=== PATIENT | female | born 1960 | race Caucasian/White ===

== ENCOUNTER 2024-01-19 16:05 | Emergency (ER) | payer MEDICARE, SELFPAY ==
[2024-01-19 16:14] VITALS: BP 146/88; PULSE 56; O2SAT 96; BMI 32.4
--- NOTE | 2024-01-19 16:22 | ED.GENADUL1 ---
HPI HPI - General Adult General Chief complaint: Abdominal Pain Stated complaint: Abdominal Pain, Diarrhea Time Seen by Provider: 01/19/24 16:07 Source: patient Mode of arrival: walk-in Limitations: no limitations History of Present Illness HPI narrative: 63-year-old female presents for nausea vomiting and diarrhea. She appears to have had this for months. She was at another hospital emergency department last month and she states she had blood tests and a CAT scan and they did not find anything. She has been to her family doctor since then but did not discuss this issue. She has had no fever or hematemesis or blood in her stools. The pain is moderate and mostly on the left side. Related Data Allergies Allergy/AdvReac Type Severity Reaction Status Date / Time No Known Drug Allergies Allergy Verified 01/19/24 16:13 Opioid HPI Opioid Management Most Recent Opioid Data: No Data to Display Review of Systems ROS Narrative A ten point review of systems is negative except as noted above. PFSH [facility] Medical History (Updated 01/19/24 @ 18:57 by Swapnil Billy MD) History of diverticulosis ?Z87.19 - Personal history of other diseases of the digestive system (ICD-10) History of IBS ?Z87.19 - Personal history of other diseases of the digestive system (ICD-10) Surgical History (Updated 01/19/24 @ 17:09 by Heath Gold) History of total hysterectomy ?Z90.710 - Acquired absence of both cervix and uterus (ICD-10) History of appendectomy ?Z90.49 - Acquired absence of other specified parts of digestive tract (ICD-10) History of cholecystectomy ?Z90.49 - Acquired absence of other specified parts of digestive tract (ICD-10) Exam Narrative Exam Narrative: Nurses note and vital signs reviewed and patient is not hypoxic. General: The patient appears well and in no apparent distress. Skin: Warm, dry, no pallor noted. There is no rash noted. Head: Normocephalic, atraumatic Eye: Normal conjunctiva, no drainage Ears, Nose, Mouth, and Throat: oral mucosa is moist. Nares patent. Cardiovascular: Regular Rate and Rhythm Respiratory: Patient is in no distress, no accessory muscle use, lungs are clear to auscultation, no wheezing, rales or rhonchi Back: non-tender, no CVA tenderness bilaterally to percussion. GI: Mild tenderness to palpation on the left side of the abdomen. Musculoskeletal: The patient has no evidence of calf tenderness, no pitting edema, symmetrical pulses noted bilaterally Neurological: A&O, normal speech Psychiatric: Cooperative Constitutional Vital Signs, click to edit/add: Last Vital Signs Pulse 60 01/19/24 18:10 Resp 16 01/19/24 18:10 BP 140/70 01/19/24 18:10 Pulse Ox 100 01/19/24 18:10 O2 Del Method Room Air 01/19/24 18:10 Course Vital Signs Vital signs: Vital Signs Pulse Rate 56 L 01/19/24 16:14 Respiratory Rate 16 01/19/24 16:14 Blood Pressure 146/88 H 01/19/24 16:14 Pulse Oximetry 96 01/19/24 16:14 Oxygen Delivery Method Room Air 01/19/24 16:14 Pulse Rate 60 01/19/24 18:10 Respiratory Rate 16 01/19/24 18:10 Blood Pressure 140/70 01/19/24 18:10 Pulse Oximetry 100 01/19/24 18:10 Oxygen Delivery Method Room Air 01/19/24 18:10 Medical Decision Making MDM Narrative Medical decision making narrative: Blood work is nonspecific. CT scan is ordered and the report is pending and the patient is signed out to Dr. Eng at change of shift. Lab Data Lab results reviewed: Yes I reviewed the patient's lab results Labs: Lab Results 01/19/24 Range/Units 16:39 WBC 8.1 (4.0-11.0) 10^3/uL RBC 4.36 (4.20-5.40) 10^6/uL Hgb 12.3 (12.0-16.0) g/dL Hct 37.7 (36.0-48.0) % MCV 86.5 (81.0-99.0) fL MCH 28.2 (26.7-34.0) pg MCHC 32.6 (29.9-35.2) g/dL RDW 12.9 (11.0-15.0) % Plt Count 270 (150-450) 10^3/uL MPV 10.9 (9.5-13.5) fL Neut % (Auto) 61.5 (43.0-75.0) % Lymph % (Auto) 28.6 (20.5-60.0) % Elbert % (Auto) 6.7 (1.7-12.0) % Eos % (Auto) 2.3 (0.9-7.0) % Baso % (Auto) 0.7 (0.2-2.0) % Neut # (Auto) 5.0 (1.4-6.5) 10^3/uL Lymph # (Auto) 2.3 (1.2-3.8) 10^3/uL Elbert # (Auto) 0.5 (0.3-0.8) 10^3/uL Eos # (Auto) 0.2 (0.0-0.7) 10^3/uL Baso # (Auto) 0.1 (0.0-0.1) 10^3/uL Abs Immat Gran (auto) 0.02 (0.00-0.03) 10^3/uL Imm/Tot Granulo (auto) 0.2 (0.0-0.5) % Sodium 139 (136-145) mmol/L Potassium 3.7 (3.5-5.1) mmol/L Chloride 102 (98-107) mmol/L Carbon Dioxide 27.2 (21.0-32.0) mmol/L Anion Gap 13.5 BUN 5.0 L (7.0-18.0) mg/dL Creatinine 1.01 (0.55-1.02) mg/dL Est GFR ( Amer) >60 (>=60) Est GFR (Non-Af Amer) 55 L (>=60) BUN/Creatinine Ratio 5.0 Glucose 106 (74-106) mg/dL Calcium 8.9 (8.5-10.1) mg/dL Total Bilirubin 0.5 (0.2-1.0) mg/dL Direct Bilirubin 0.1 (0.0-0.2) mg/dL AST 23 (15-37) U/L ALT 27 (14-59) U/L Alkaline Phosphatase 84 (46-116) U/L Total Protein 7.4 (6.4-8.2) g/dL Albumin 3.7 (3.4-5.0) g/dL Globulin 3.7 g/dL Albumin/Globulin Ratio 1.0 Amylase 26 (25-115) U/L Lipase 28.0 (16.0-77.0) U/L Discharge Plan Discharge Patient Disposition: Still a Patient
--- NOTE | 2024-01-19 16:35 | CT_ITS ---
[facility] [address] [place], [place] [address] Patient Name: LLUVIA CASTILLO MRN: [id number] date: 1960 Sex: F Assigned Patient Location: ER Current Patient Location: ED.MAIN Accession/Order Number: [id number] Exam Date: 01/19/2024 17:46 Report Date: 01/19/2024 19:34 At the request of: MICHAEL MASTERS Procedure: CT abdomen pelvis w con EXAM: CT abdomen pelvis w con HISTORY: Left lower quadrant pain COMPARISON: None. TECHNIQUE: CT abdomen pelvis with IV contrast 100 mL Omnipaque 300. Axial scans with multiplanar reformatted images. Individualized dose reduction used for this exam. FINDINGS: Lower Chest: No acute process. ABDOMEN: unremarkable liver, adrenal glands, pancreas spleen. Previous cholecystectomy with mildly prominent extrahepatic biliary tract. No abnormality in the pancreas head or duct. Ascites or free fluid. No adenopathy. Normal size aorta. Graft normal renal enhancement without mass or hydronephrosis. Normal ureters. No bowel distention or evidence of ileus or obstruction. Decreased caliber bowel distal transverse colon, left colon and pelvic colon with evaluation for wall thickening. No pericolonic fluid or inflammation. Minimal diverticular disease without diverticulitis. Appendix not visualized. Pelvis: Previous hysterectomy. Normal-appearing fluid-filled bladder. No mass or adenopathy or free fluid. MUSCULOSKELETAL: No hernia noted. No suspicious bone lesion. Degenerative changes. CT/CT abdomen pelvis w con IMPRESSION: No acute abnormality lower chest abdomen pelvis. Decreased caliber distal transverse colon, left colon and pelvic colon which is nonspecific but limits assessment for wall thickening. No pericolonic fluid or inflammation. Electronically authenticated by: ELLIS STANFORD Date: 01/19/2024 19:34
[2024-01-19 16:50] LABS: Basophils Absolute Auto 0.1 10^3/uL (0.0-0.1); Basophils Percent Auto 0.7 % (0.2-2.0); Eosinophils Absolute Auto 0.2 10^3/uL (0.0-0.7); Eosinophils Percent Auto 2.3 % (0.9-7.0); Hematocrit 37.7 % (36.0-48.0); Hemoglobin 12.3 g/dL (12.0-16.0); Immature Granulocytes Abs Auto 0.02 10^3/uL (0.00-0.03); Immature Granulocytes Pct Auto 0.2 % (0.0-0.5); Lymphocytes Absolute Auto 2.3 10^3/uL (1.2-3.8); Lymphocytes Percent Auto 28.6 % (20.5-60.0); Mean Corpuscular HGB Conc 32.6 g/dL (29.9-35.2); Mean Corpuscular Hemoglobin 28.2 pg (26.7-34.0); Mean Corpuscular Volume 86.5 fL (81.0-99.0); Mean Platelet Volume 10.9 fL (9.5-13.5); Monocytes Absolute Auto 0.5 10^3/uL (0.3-0.8); Monocytes Percent Auto 6.7 % (1.7-12.0); Neutrophils Percent Auto 61.5 % (43.0-75.0); Platelet Count 270 10^3/uL (150-450); Red Blood Count 4.36 10^6/uL (4.20-5.40); Red Cell Distribution Width 12.9 % (11.0-15.0); White Blood Count 8.1 10^3/uL (4.0-11.0)
[2024-01-19] MEDS: ONDANSETRON PF 4 MG/2 ML VIAL IV (17:01)
[2024-01-19] MEDS: 0.9 % SODIUM CHLORIDE 1,000 ML 1000 ML IV (17:01)
[2024-01-19 17:23] LABS: Alanine Aminotransferase 27 U/L (14-59); Albumin Level 3.7 g/dL (3.4-5.0); Alkaline Phosphatase 84 U/L (46-116); Amylase 26 U/L (25-115); Anion Gap 13.5; Aspartate Amino Transferase 23 U/L (15-37); Bilirubin Direct 0.1 mg/dL (0.0-0.2); Bilirubin Total 0.5 mg/dL (0.2-1.0); Calcium 8.9 mg/dL (8.5-10.1); Carbon Dioxide 27.2 mmol/L (21.0-32.0); Chloride 102 mmol/L (98-107); Estimated GFR (African America >60 (>=60); Estimated GFR (Non-African Ame 55 (>=60); Globulin 3.7 g/dL; Glucose 106 mg/dL (74-106); Potassium 3.7 mmol/L (3.5-5.1); Sodium 139 mmol/L (136-145); Total Protein 7.4 g/dL (6.4-8.2)
[2024-01-19 18:10] VITALS: BP 140/70; PULSE 60; O2SAT 100
[2024-01-19 19:14] VITALS: BP 129/57; PULSE 50; TEMP 36.6; O2SAT 98
[2024-01-19] MEDS: DICYCLOMINE HCL 20 MG/2 ML VIAL IM (20:38)
[2024-01-19 20:46] VITALS: BP 131/58; PULSE 48; O2SAT 98
== END 2024-01-19 20:49 | disposition home or self-care (01) ==
PROVIDERS: Emergency Medicine; Emergency Provider Internal Medicine; PCP Internal Medicine
DX: R10.9 Unspecified abdominal pain (principal)
CPT/HCPCS: 36415; 74177; 80048; 80076; 82150; 83690; 85025; 87045; 87046; 87427; 87493; 96361; 96372; 96374; 99285; J0500; J2405; Q9967